=== PATIENT | male | born 1980 | race Two or more races ===

== ENCOUNTER 2020-09-04 16:11 | Emergency (ER) | payer MEDICAID, SELFPAY ==
[2020-09-04 16:26] VITALS: BP 131/69; PULSE 58; RESP 18; TEMP 36.4; O2SAT 99; BMI 29.5
--- NOTE | 2020-09-04 17:38 | ED.WOUNDLAC ---
HPI - Wound/Laceration General Chief Complaint: Skin/Abscess/Foreign Body Stated Complaint: Lac Time Seen by Provider: 09/04/20 17:37 Source: patient Mode of arrival: ambulatory Limitations: no limitations History of Present Illness HPI narrative: 40 y/o male presenting with right thumb laceration after he accidentally cut himself with a box toe flanger stitchdowns. He is able to move his thumb and bleeding is controlled on arrival. No other injury. Has never had stitches or a tetanus vaccine. Onset (ago): minute(s) (45) Location: other Extremity Location: right: hand (thumb ) Place: home Patient tetanus UTD: No Context: accidental Associated symptoms: pain Related Data Previous Rx's Medication Instructions Recorded cephalexin [Keflex] 500 mg PO QID #20 cap 09/04/20 Allergies Allergy/AdvReac Type Severity Reaction Status Date / Time No Known Allergies Allergy Verified 09/04/20 16:26 Review of Systems Review of Systems: Musculoskeletal: No joint pain, No Myalgias Skin: + Skin Lesions, No rash Neuro: No Weakness, No Numbness Heme/Lymph: No Bruising, No Lymphadenopathy PMFSH Past Medical History Attestation statement: The following information was validated with the patient. Medical History Healthy adult Social History Social History Advance Directives: No Advance Directives Information Provided: No Physical Exam Vital Signs: Vital Signs: Last Vital Signs Temp 97.6 F 09/04/20 16:26 Pulse 58 09/04/20 16:26 Resp 18 09/04/20 16:26 BP 131/69 09/04/20 16:26 Pulse Ox 99 09/04/20 16:26 Body Mass Index 29.5 Appearance: Alert. Oriented X3. No acute distress. HEENT: normal inspection Respiratory: No respiratory distress. Skin: Skin warm and dry. Normal skin color. Normal skin turgor. No rashes. Extremities: right thumb with 1.5 cm laceration at the tip without nail involvement, superficial with flap. NV intact. DIP flexion intact. Neuro: Oriented X 3. No motor deficit. No sensory deficit. Course Course Course Narrative: 40 y/o male with accidental right thumb lac from box toe flanger stitchdowns. see lac note. dressing applied and patient counseled. stable for d/c. Procedures Laceration Laceration 1: Site: hand Side (If applicable): right Size (cm): 2 Description: linear Depth: simple, single layer Local Anesthetic: lidocaine 2% Amount of anesthesia used (mL): 2 Pre-repair: irrigated extensively Skin layer closed with: nylon Size (cm): 4-0 Number of sutures: 4 Technique: simple, interrupted Technique: simple, interrupted Critical Care Time Critical Care Time Critical Care Time: No Discharge Plan Discharge Clinical Impression: Laceration Patient Disposition: Home, Self-Care Instructions: Finger Laceration (ED) Additional Instructions: Keep wound clean and dry. Do not get it wet for 24 hours. After that you can use gentle soap and water. Use topical bacitracin or triple antibiotic ointment to the area 2x per day. Take the prescribed antibiotics to help prevent infection. Monitor for signs of infection including worsening pain, redness, swelling or drainage of pus. If these develop, come back to the ER. Take Tylenol and/or Motrin as needed for pain. See your doctor or come back to the ER in 8-10 days for suture removal. Prescriptions: New cephalexin [Keflex] 500 mg capsule 500 mg PO QID Qty: 20 RF: 0 Stand Alone Forms: Work/School Release
[2020-09-04] MEDS: Lidocaine HCl 2 % MPF 5 ML VIAL INFILTRATI (18:25)
== END 2020-09-04 18:32 | disposition home or self-care (01) ==
PROVIDERS: Emergency Provider Emergency Medicine
DX: S61.011A Laceration without foreign body of right thumb without damage to nail, initial encounter (principal); S60.311A Abrasion of right thumb, initial encounter; M79.641 Pain in right hand; W26.0XXA Contact with knife, initial encounter; Y93.9 Activity, unspecified; Y92.009 Unspecified place in unspecified non-institutional (private) residence as the place of occurrence of the external cause; Y99.9 Unspecified external cause status; Z23 Encounter for immunization
CPT/HCPCS: 12001; 90471; 90715; 99283; 99284

== ENCOUNTER → 2020-10-29 13:15 | Outpatient (BNVA) | payer MEDICAID, SELFPAY | PROVIDERS: PCP Registered Nurse Community Health; Visit Provider Nurse Practitioner Family ==

== ENCOUNTER 2020-12-24 12:28 | Day surgery (SDC) | payer MEDICAID, SELFPAY ==
[2020-12-15 20:50] VITALS: BMI 26.6
[2020-12-17 09:39] LABS: Hemoglobin 12.8 g/dl (14.0-18.0); Mean Corpuscular Hemoglobin 26.8 pg (27.0-33.0); Mean Corpuscular Volume 83.9 fL (80-98); Mean Platelet Volume 9.5 fL (9.4-12.4); Platelet Count 261 X10*3/uL (160-400); Red Blood Count 4.77 X10*6/uL (4.60-5.80); Red Cell Distribution Width 13.5 % (11.0-16.0); White Blood Count 4.7 X10*3/uL (4.8-10.8)
[2020-12-17 10:14] LABS: Alanine Aminotransferase 23 U/L (0-40); Albumin Level 4.3 g/dL (3.5-5.0); Alkaline Phosphatase 63 U/L (39-117); Anion Gap 12 (12-20); Aspartate Amino Transferase 37 U/L (5-37); Bilirubin Total 0.7 mg/dL (0.0-1.0); Blood Urea Nitrogen 20 mg/dL (9-16); Carbon Dioxide 27 mmol/L (22-29); Chloride 106 mmol/L (96-108); Creatinine Clr Calc Pharmacy 100.3; Estimated Glomerular Filt Rate > 60; Glucose Random 92 mg/dL (60-115); Potassium 4.8 mmol/L (3.3-5.1); Sodium 140 mmol/L (135-145); Total Protein 7.6 g/dL (6.5-8.0)
--- NOTE | 2020-12-23 08:54 | P.CONAN_ITS ---
Documented by User: Bouchra Loo 12/23/20 08:55 HPI - Anesthesia Eval Consult details Narrative: 40yo M for Colonoscopy PMFSH Past Medical History Medical History Back pain Healthy adult Family History Family History Mother Colon cancer Father HIV (human immunodeficiency virus infection) Drug use Paternal Grandfather Prostate cancer Social History Social History Alcohol intake: former Smoking Status: Former smoker Smoked in Last 30 Days: No Smoking Quit Date: 2002 Use of substances other than those prescribed or required for medical reasons: No Have you been hit, kicked, punched, or otherwise hurt by someone within the past year? If so, by whom?: No Advance Directives: No Advance Directives Information Provided: No Advance Directives on File: No Recently lost weight without trying: No service: No Current occupational status: employed Current occupation: [employer] Gender identity: male Meds Allergies Allergy/AdvReac Type Severity Reaction Status Date / Time No Known Allergies Allergy Verified 12/24/20 12:44 Exam Exam Date and Time: December 23, 2020 0854 Height,Weight and Vital Signs: Height 5 ft 10 in Weight 84.368 kg Pertinent Lab Results Pertinent Lab Results: Laboratory Tests 12/17/20 12/17/20 08:55 08:55 WBC 4.7 L RBC 4.77 Hgb 12.8 L Hct 40.0 L MCV 83.9 MCH 26.8 L MCHC 32.0 RDW 13.5 Plt Count 261 MPV 9.5 Absolute Nucleated RBC 0.000 Nucleated RBC % (auto) 0.0 Sodium 140 Potassium 4.8 Chloride 106 Carbon Dioxide 27 Anion Gap 12 BUN 20 H Creatinine 1.02 Estim Creat Clear Calc 100.3 Estimated GFR > 60 Random Glucose 92 Calcium 9.0 Total Bilirubin 0.7 AST 37 ALT 23 Alkaline Phosphatase 63 Total Protein 7.6 Albumin 4.3 Assessment and Plan Assessment Anesthesia Assessment: Chart Reviewed Documented by User: Aditi Yeboah 12/24/20 13:39 PMFSH Past Medical History Medical History Back pain Healthy adult Family History Family History Mother Colon cancer Father HIV (human immunodeficiency virus infection) Drug use Paternal Grandfather Prostate cancer Social History Social History Alcohol intake: former Smoking Status: Former smoker Smoked in Last 30 Days: No Smoking Quit Date: 2002 Use of substances other than those prescribed or required for medical reasons: No Have you been hit, kicked, punched, or otherwise hurt by someone within the past year? If so, by whom?: No Advance Directives: No Advance Directives Information Provided: No Advance Directives on File: No Recently lost weight without trying: No service: No Current occupational status: employed Current occupation: [employer] Gender identity: male Meds Allergies Allergy/AdvReac Type Severity Reaction Status Date / Time No Known Allergies Allergy Verified 12/24/20 12:44 Exam Airway Mallampati Class: II TM Dist: >3cm Neck ROM: Full Assessment and Plan Assessment Anesthesia Assessment: Anesthesia Plan Discussed and Chart Reviewed Final Anesthetic Review NPO: Yes ASA Class: II Final Preanesthetic Review: No Changes in Pt Med Stat, Meds/Allgs Chart Reviewed, Consent Obtained/Reviewed and Anes Risks/Benef Reviewed Patient Risk: Low Procedure Risk: Low Assessment/Block/Sedation in SS: Assess/Block/Sedation-SS Anesthetic Plan Anesthetic Plan: MAC: Disposition: Standard PACU
[2020-12-24 12:44] VITALS: BP 118/41; PULSE 58; RESP 18; TEMP 36.8; O2SAT 99
--- NOTE | 2020-12-24 13:05 | P.OP_ITS ---
Operative Note Operative Note Date of Service: 12/24/20 Narrative: Pre-op diagnosis: Colon cancer screening, positive family history of colon cancer (mom in her 40's) Post-op diagnosis: other (diverticulosis, hemorrhoids) Procedure: COLONOSCOPY TILL CECUM WITH BIOPSIES Consent: Indications for the procedure and potential complications of bleeding, perforation, reaction to medications and missed diagnosis were discussed with the patient and informed consent was obtained. Instrument: Olympus PCF H 190 L variable stiffness pediatric colonoscope Monitoring: Vital signs and clinical assessment, intermittent blood pressure monitoring, continuous EKG monitoring, Pulse oximetry and Carbon Dioxide monitoring were done throughout the procedure. Colon withdrawl time was 25 minutes. Procedure: The patient was placed in the left lateral decubitis position and pre-procedure medications were administered. After a digital rectal examination of the ano-rectum, the video colonoscope was inserted into the rectum and advanced through the colon to the cecum. The colonoscope was slowly withdrawn in a retrograde panoramic fashion and the colon mucosa was carefully examined including a retroflexed view of the rectum. Findings and interventions are described below. Procedure Difficulty: Without difficulty Findings: Terminal Ileum: Not evaluated Cecum: Normal Ascending Colon: Friable appearing mucosa in the right colon - random biopsies were obtained. Transverse Colon: Normal Descending Colon: Moderate diverticulosis Sigmoid Colon: Moderate diverticulosis Rectum: Normal Ano-rectum: Moderate internal hemorrhoids Colon preparation: Fair despite copious irrigation due to adherent stool in the right colon, 75 to 80% of the mucosa was visualized and no large lesions were seen. Impression and Post Procedure Diagnosis: Colonoscopy Findings: No polyps were detected. Friable appearing mucosa in the right colon - random biopsies were obtained. Moderate diverticulosis seen in the left colon Moderate hemorrhoids on retroflexed exam. Plan: Await pathology results Patient has an appointment on 12/31/20 in the [facility] with An Myles FNP- [facility]. Repeat Colonoscopy interval based on path results - in 3 years due to positive family history and fair prep Above findings were reviewed with the patient and diverticulosis handout was given in the discharge area Surgeon: Yanira Higgins MD Anesthesia: MAC (Ashia Motneiro) Physician Gynecologist: Amari Covington Estimated blood loss (mL): 0 Pathology: other (A. Right colon) Condition: stable Disposition: PACU
[2020-12-24] MEDS: Lactated Ringers 1,000 ML 100 ML IVCONT (13:06)
--- NOTE | 2020-12-24 13:06 | MHC.SHP ---
Pre-Procedural Eval Section B Chief Complaint: screening, labs Details of Present Illness: 40 year old male here today for pre colonoscopy screening. Patient was sent to us by his PCP. This is his first colonoscopy screening. Patient denies any gastrointestinal symptoms in the past or at present. Denies any personal history of gastrointestinal disease, colon polyps, or cancer. Patient reports that his mother was diagnosed with stage IV cancer in her early 40s. Relevant Family History (Specify if Yes): Yes Relevant Social History: Tobacco Use (past smoker) Present Medications: see Short Stay Collaborative assessment Medical History: No relevant PMH History of Previous Operations: No relevant previous surgery Allergies: Allergies Allergy/AdvReac Type Severity Reaction Status Date / Time No Known Allergies Allergy Verified 12/24/20 12:44 Review of Systems Sugical H&P ROS: Negative: Constitution, Cardiovascular, Respiratory and Gastrointestinal Exam Surgical H&P Exam: Normal: Heart, Normal: Lungs, Normal: Extremities and Normal: Abdomen Plan Diagnosis/Plan: Unchanged I have reviewed the history and physical and performed a pertinent physical examination on my patient. No changes have occurred unless specified.
[2020-12-24 13:08] VITALS: BMI 26.2
[2020-12-24 14:15] VITALS: BP 90/43; PULSE 48; RESP 12; TEMP 36; O2SAT 97
[2020-12-24 14:30] VITALS: BP 120/64; PULSE 58; RESP 16; TEMP 36.1; O2SAT 99
== END 2020-12-24 15:00 | disposition home or self-care (01) ==
PROVIDERS: Absent Provider Nurse Practitioner Family; Visit Provider Internal Medicine Gastroenterology
PROC: 0DJD8ZZ Inspection of Lower Intestinal Tract, Via Natural or Artificial Opening Endoscopic (ICD-10-PCS; CPT 45378; principal; 2020-12-24 13:30)
DX: Z12.11 Encounter for screening for malignant neoplasm of colon (principal); Z80.0 Family history of malignant neoplasm of digestive organs; K57.30 Diverticulosis of large intestine without perforation or abscess without bleeding; K64.8 Other hemorrhoids; Z87.891 Personal history of nicotine dependence
CPT/HCPCS: 45380; 36415; 80053; 85027; 88305

== ENCOUNTER → 2021-01-07 13:23 | Outpatient (BNVA) | payer MEDICAID, SELFPAY | PROVIDERS: PCP Registered Nurse Community Health; Visit Provider Nurse Practitioner Family ==

== ENCOUNTER → 2021-02-11 13:22 | Outpatient (BNVA) | payer MEDICAID, SELFPAY | PROVIDERS: PCP Registered Nurse Community Health; Visit Provider Nurse Practitioner Family ==

== ENCOUNTER 2024-03-14 16:35 | Outpatient (AMB) | payer MEDICAID, SELFPAY ==
--- NOTE | 2024-03-14 16:28 | A.OFFVIS_ITS ---
Vital Signs 03/14/24 16:37 Height 5 ft 9 in Weight 194 lb 7.163 oz BMI 28.7 BP 150/78 H Blood Pressure Location Lt brachial Position Sitting Pulse 64 Pulse Source Pulse Oximeter Pulse Oximetry (%) 97 Oxygen Delivery Method Room Air Intake Visit Reasons: discuss colonoscopy Intake Note: Cr presents in office today for a routine colo scrn. CC; Pt reports that their condition has remained stable. Pt denies any significant sx or concerns. Pt states that their last colo sp was approximately 3-4 years ago. Final Block Press Operator Required: No Allergies No Known Allergies Allergy (Verified 03/14/24 16:37) HPI HPI discuss colonoscopy: Details: LAST VISIT: Diverticulosis Plan As mentioned above in HPI patient tolerating Citrucel well. Denies any GI symptoms. Moving his bowels every day. Denies any abdominal discomfort, bloating, distention. He is agreeable to stay on it and take it every day. Refills sent to pharmacy. High-fiber diet discussed again with patient. He is verbalizing understanding and is agreeable to plan of care. He was given the opportunity to ask questions all questions answered. I will see him in 6 months sooner if he will experience any concerning GI symptoms. ? Thank you for allowing me to participate in his care Medications Refilled: methylcellulose (laxative) (Citrucel) 500 mg PO DAILY 30 tabs 4RF TODAY'S VISIT Patient is here today for follow-up and to discuss going for colonoscopy again. Last colonoscopy was in December of 2020. There was no polyps, moderate diverticulosis found, however due to patient's family history of CRC patient was recommended to return for colorectal screening in 3 years. Patient's mom of colorectal cancer in her early 40s. Patient denies any melena, hematochezia unintentional weight loss or ribbon like stools. Patient reports that he has been moving his bowels well. Denies any cardiac or respiratory symptoms. No history of sleep apnea. No issues with anesthesia in the past. Not on any anticoagulation medication. [facility] Medical History Diverticulosis Back pain Healthy adult Surgical History H/O colonoscopy Family History Mother Colon cancer Father HIV (human immunodeficiency virus infection) Drug use Paternal Grandfather Prostate cancer Social History Household Members: Spouse and Children Alcohol intake: current Alcohol intake frequency: holidays/special occasions only service: No Current occupational status: employed Current occupation: [email or web address] Gender identity: Male Review of Systems Const Denies weight gain and Denies weight loss ENT Reports no additional complaints, Denies dysphagia and Denies odynophagia Card Reports no additional complaints Resp Reports no additional complaints GI Denies abdominal pain, Denies belching, Denies melena, Denies bloating, Denies change in bowel habits, Denies dysphagia, Denies excessive flatus, Denies dyspepsia, Denies heartburn, Denies diarrhea, Denies loose stools, Denies nausea, Denies odynophagia and Denies vomiting Reports no additional complaints Musc Reports no additional complaints Neuro Reports no additional complaints Psych Reports no additional complaints Endo Reports no additional complaints Physical Exam Vital Signs: Last Vital Signs Pulse 64 03/14/24 16:37 BP 150/78 H 03/14/24 16:37 Pulse Ox 97 03/14/24 16:37 Oxygen Delivery Method Room Air 03/14/24 16:37 BMI result Body Mass Index 28.7 Const General: healthy appearing, no acute distress and well developed Nutritional Appearance: well nourished Orientation/consciousness: patient oriented x3 Resp Effort & Inspection: normal respiratory effort, able to speak in complete sentences, no tracheal deviation and symmetric chest movement Auscultation: clear to auscultation bilaterally Cardio Rate: regular rate GI Inspection: Yes normal to inspection and No distended Palpation (GI): Soft to palpation, not firm, nontender and No hepatosplenomegaly present Auscultation: normal bowel sounds General: Yes no CVA tenderness Back/Spine/Pelvis Back: no CVA tenderness Skin General skin exam: elasticity normal, turgor normal and dry skin Neuro General: patient oriented x3 Psych Appearance: grossly normal Mental Status: mental status grossly normal Assessment & Plan Assessment & Plan (1) Diverticulosis: Code(s): K57.90 - Diverticulosis of intestine, part unspecified, without perforation or abscess without bleeding Category: Medical (2) Family history of colorectal cancer: Code(s): Z80.0 - Family history of malignant neoplasm of digestive organs (3) Screen for colon cancer: Code(s): Z12.11 - Encounter for screening for malignant neoplasm of colon Plan Will book patient for colonoscopy. What to expect before during and after procedure discussed with patient. Discussed with him the importance of good bowel prep and clear liquid diet day before procedure. Patient was encouraged to take Dulcolax few days before procedure in the evening to ensure good bowel prep. No issues with anesthesia in the past. No history of sleep apnea. Denies any cardiac or respiratory symptoms. Not on any anticoagulation medication. I will see him after the procedure, sooner on as needed basis. He is agreeable to this plan and verbalizes understanding of instructions. She was given the opportunity to ask questions and all questions answered. Thank you for allowing me to participate in his care Medications: New bisacodyl (Dulcolax (bisacodyl)) Start taking 2 tablet every night 7 days before the procedure and 1 day before procedure take 4 tablets at noon time followed by MiraLax prep 10 mg (2 x 5 mg) PO BEDTIME 16 tabs 0RF Z12.11 - Encounter for screening for malignant neoplasm of colon polyethylene glycol 3350 (Miralax) As directed by gastroenterology department at [facility] 238 grams PO ONCE 238 grams 0RF Z12.11 - Encounter for screening for malignant neoplasm of colon Coding Level of Care Code Est Pt Level 3 (44873) Diagnoses Diverticulosis K57.90 Family history of colorectal cancer Z80.0 Screen for colon cancer Z12.11 Time Spent (min) 30 Comment 20 minutes spent with patient and additional 10 minutes spent reviewing his records
[2024-03-14 16:37] VITALS: BP 150/78; PULSE 64; O2SAT 97; BMI 28.7
== END 2024-03-14 16:58 | disposition home or self-care (01) ==
PROVIDERS: Visit Provider Nurse Practitioner Family
DX: K57.90 Diverticulosis of intestine, part unspecified, without perforation or abscess without bleeding (principal); Z80.0 Family history of malignant neoplasm of digestive organs; Z12.11 Encounter for screening for malignant neoplasm of colon
CPT/HCPCS: 99213

== ENCOUNTER → 2024-03-14 16:35 | Outpatient (BNVA) | payer MEDICAID, SELFPAY | PROVIDERS: Visit Provider Nurse Practitioner Family | DX: Z12.11 Encounter for screening for malignant neoplasm of colon (principal); K57.20 Diverticulitis of large intestine with perforation and abscess without bleeding; Z80.0 Family history of malignant neoplasm of digestive organs | CPT/HCPCS: 99212 ==

== ENCOUNTER 2025-01-16 07:24 | Day surgery (SDC) | payer MEDICAID, SELFPAY ==
[2025-01-14 13:35] VITALS: BMI 28.7
--- NOTE | 2025-01-15 09:01 | HO.ANESPROP2 ---
Documented by User: Bouchra Loo NP 01/15/25 09:01 HPI - Anesthesia Eval Consult details Narrative: 44yo M for Colonoscopy PMFSH Active Problems Active Problems: All Active Problems Diverticulosis (Acute) Past Medical History Medical History Diverticulosis Back pain Healthy adult Family History Family History Mother Colon cancer Father HIV (human immunodeficiency virus infection) Drug use Paternal Grandfather Prostate cancer Surgical History Surgical History H/O colonoscopy Social History Social History Household Members: Spouse and Children Alcohol intake: current Alcohol intake frequency: holidays/special occasions only Patient Tobacco Use Status: Former Tobacco user Use of substances other than those prescribed or required for medical reasons: No Are you DNR?: No Advance Directives: No Advance Directives Information Provided: Yes Poor oral hygiene: No service: No Current occupational status: employed Current occupation: [employer] Gender identity: Male Meds Allergies Allergy/AdvReac Type Severity Reaction Status Date / Time No Known Allergies Allergy Verified 03/14/24 16:37 Exam Height,Weight and Vital Signs: Height 5 ft 9 in Weight 88.195 kg Assessment and Plan Assessment Anesthesia Assessment: Chart Reviewed Documented by User: Lizet Carson MD 01/16/25 08:22 PMF Past Medical History Medical History Diverticulosis Back pain Healthy adult Family History Family History Mother Colon cancer Father HIV (human immunodeficiency virus infection) Drug use Paternal Grandfather Prostate cancer Family history of problems with anesthesia: No Surgical History Surgical History H/O colonoscopy History of Problems with Anesthesia: No Social History Social History Household Members: Spouse and Children Alcohol intake: current Alcohol intake frequency: holidays/special occasions only Patient Tobacco Use Status: Former Tobacco user Use of substances other than those prescribed or required for medical reasons: No Are you DNR?: No Advance Directives: No Advance Directives Information Provided: Yes Poor oral hygiene: No service: No Current occupational status: employed Current occupation: [employer] Gender identity: Male Meds Allergies Allergy/AdvReac Type Severity Reaction Status Date / Time No Known Allergies Allergy Verified 03/14/24 16:37 Exam Airway Mallampati Class: II TM Dist: >3cm Neck ROM: Full Heart: rrr Lungs: cta Assessment and Plan Assessment Anesthesia Assessment: Anesthesia Plan Discussed Final Anesthetic Review Family History of Problems with Anesthesia: No History of Problems with Anesthesia: No NPO: Yes ASA Class: II Final Preanesthetic Review: No Changes in Pt Med Stat, Meds/Allgs Chart Reviewed and Consent Obtained/Reviewed Patient Risk: Low Procedure Risk: Low Anesthetic Plan Anesthetic Plan: MAC: Disposition: Standard PACU
[2025-01-16 07:35] VITALS: BMI 28.2
[2025-01-16 07:40] VITALS: BP 124/48; PULSE 60; RESP 16; TEMP 37.2; O2SAT 95
[2025-01-16] MEDS: Lactated Ringers 1,000 ML 100 ML IVCONT (07:55)
--- NOTE | 2025-01-16 08:14 | MHC.SHP ---
Pre-Procedural Eval Section A - 24 Hr Update-Section A only Date of Service: 01/16/25 The patient is an INPATIENT: No The patient has been examined within 24 hours of the surgical procedure. The History & Physical has been completed within 30 days and I have reviewed it.: No Section B - Complete if H&P > 30 days Chief Complaint: Colon cancer screening Relevant Family History (Specify if Yes): Yes Relevant Social History: Tobacco Use (former smoker) Present Medications: see Short Stay Collaborative assessment Medical History: Significant History (Diverticulosis Back pain) History of Previous Operations: Relevant previous surgery/procedure and date(s) (History of colonoscopy) Allergies: Allergies Allergy/AdvReac Type Severity Reaction Status Date / Time No Known Allergies Allergy Verified 03/14/24 16:37 Review of Systems Sugical H&P ROS: Negative: Constitution, Cardiovascular, Respiratory and Gastrointestinal Exam Surgical H&P Exam: Normal: Heart, Normal: Lungs, Normal: Extremities and Normal: Abdomen Plan Diagnosis/Plan: Unchanged I have reviewed the history and physical and performed a pertinent physical examination on my patient. No changes have occurred unless specified. Time Spent With Patient Time: Total time managing care of this patient today ____ minutes.
--- NOTE | 2025-01-16 09:12 | HO.OPN-COLON ---
Colonoscopy Operative Note Operative Note Date of Service: 01/16/25 Narrative: COLONOSCOPY TILL CECUM Pre-op diagnosis: Colon cancer screening, family hx of colon cancer. Post-op diagnosis:? Diverticulosis, hemorrhoids Endoscopist:? Yanira Higgisn MD Anesthesia:?MAC Consent: Indications for the procedure and potential complications of bleeding, perforation, reaction to medications and missed diagnosis were discussed with the patient and informed consent was obtained. Instrument: Olympus CF H 190 L variable stiffness adult colonoscope Monitoring: Vital signs and clinical assessment, intermittent blood pressure monitoring, continuous EKG monitoring, Pulse oximetry and Carbon Dioxide monitoring were done throughout the procedure. Please see anesthesia flowsheet. Colon withdrawl time was 13 minutes. Procedure: The patient was placed in the left lateral decubitis position and pre-procedure medications were administered. After a digital rectal examination of the ano-rectum, the video colonoscope was inserted into the rectum and advanced through the colon to the cecum. The colonoscope was slowly withdrawn in a retrograde panoramic fashion and the colon mucosa was carefully examined including a retroflexed view of the rectum. Findings and interventions are described below. Procedure Difficulty: Colon was long and tortuous and there was some loop formation Findings: Terminal Ileum: Not evaluated Cecum: Normal Ascending Colon: Normal Transverse Colon: Normal Descending Colon: Normal Sigmoid Colon: Moderate diverticulosis Rectum: Normal Ano-rectum: Moderate internal hemorrhoids Colon preparation: Excellent after some irrigation. [place] Bowel Preparation Scale Right colon; 3 Transverse colon: 3 Left colon; 3 (0 = Unprepared colon segment with mucosa not seen due to solid stool that cannot be cleared. 1 = Portion of mucosa of the colon segment seen, but other areas of the colon segment not well seen due to staining, residual stool and/or opaque liquid. 2 = Minor amount of residual staining, small fragments of stool and/or opaque liquid, but mucosa of colon segment seen well. 3 = Entire mucosa of colon segment seen well with no residual staining, small fragments of stool or opaque liquid) Impression and Post Procedure Diagnosis: Colonoscopy Findings: No polyps were detected Moderate diverticulosis seen in the sigmoid colon Small hemorrhoids on retroflexed exam. Plan: Pt has a FU appointment on 01/30/25 with Lupe Myles NP Repeat Colonoscopy in 5 years due to positive family history. Above findings were reviewed with the patient and relevant handouts were given and the discharge area.
[2025-01-16 09:17] VITALS: BP 91/48; PULSE 55; RESP 15; TEMP 36.9; O2SAT 96
[2025-01-16 09:32] VITALS: BP 93/43; PULSE 56; RESP 15; O2SAT 96
[2025-01-16 09:47] VITALS: BP 102/51; PULSE 56; RESP 15; TEMP 36.8; O2SAT 96
== END 2025-01-16 10:17 | disposition home or self-care (01) ==
PROVIDERS: Visit Provider Internal Medicine Gastroenterology
PROC: 0DJD8ZZ Inspection of Lower Intestinal Tract, Via Natural or Artificial Opening Endoscopic (ICD-10-PCS; CPT 45378; principal; 2025-01-16 08:30)
DX: Z12.11 Encounter for screening for malignant neoplasm of colon (principal); K57.30 Diverticulosis of large intestine without perforation or abscess without bleeding; K64.8 Other hemorrhoids; K56.2 Volvulus; Z80.0 Family history of malignant neoplasm of digestive organs; Z87.891 Personal history of nicotine dependence; Z79.899 Other long term (current) drug therapy
CPT/HCPCS: 45378; J2003; J2704

== ENCOUNTER → 2025-01-16 07:24 | Outpatient (BNV) | payer MEDICAID, SELFPAY | PROVIDERS: Visit Provider Internal Medicine Gastroenterology | DX: Z12.11 Encounter for screening for malignant neoplasm of colon (principal); Z80.0 Family history of malignant neoplasm of digestive organs; K57.30 Diverticulosis of large intestine without perforation or abscess without bleeding; K64.8 Other hemorrhoids | CPT/HCPCS: 45378 ==

== ENCOUNTER 2025-02-05 09:38 | Emergency (ER) | payer OTHER, MEDICAID, SELFPAY ==
--- NOTE | ~2025-02-05 | XR_ITS ---
EXAMINATION: XR ANKLE, RIGHT CLINICAL INFORMATION: right ankle injury COMPARISON: None available. TECHNIQUE: AP, lateral, and mortise views of the right ankle. FINDINGS: No fracture, dislocation, or suspicious bone lesion. Normal bone mineralization. Normal alignment. Mortise is preserved. The talar dome is normal. The subtalar joints and calcaneus appear normal. Joint spaces are preserved. No significant arthropathy. No ankle joint effusion. Soft tissues appear normal. XR/XR ankle RT min 3V IMPRESSION: Normal right ankle. Electronically signed by: Mario Cadena MD 02/05/2025 11:00 AM EDT
[2025-02-05 09:39] VITALS: BP 137/71; PULSE 67; RESP 16; TEMP 36; O2SAT 99; BMI 27.3
--- NOTE | 2025-02-05 11:25 | ED.GENADULT ---
HPI - General Adult General Chief complaint: Extremity Injury, Lower Stated complaint: ankle inj @ work Time Seen by Provider: 02/05/25 11:25 Source: patient Mode of arrival: ambulatory Limitations: no limitations History of Present Illness ED Provider: Wesley Kinney HPI narrative: 44 yold male with pmh of diverticulosis presents to the ED for Right ankle pain. patient states a table at work fell on his right ankle. patient denies table falling on foot. patient states table did not fall unto his feet. patient denies any other trauma or complaints. Related Data Previous Rx's ?Medication ?Instructions ?Recorded methylcellulose (laxative) 500 mg 500 mg PO DAILY #30 tabs 11/08/21 tablet (Citrucel) naproxen 500 mg tablet 500 mg PO BID PRN pain #14 tabs 02/05/25 Allergies Allergy/AdvReac Type Severity Reaction Status Date / Time No Known Allergies Allergy Verified 02/05/25 09:41 Review of Systems Review of Systems: Right ankle pain Yes all other systems are reviewed and are negative PMFSH Past Medical History Medical History Diverticulosis Back pain Healthy adult Surgical History H/O colonoscopy Family History Family History Mother Colon cancer Father HIV (human immunodeficiency virus infection) Drug use Paternal Grandfather Prostate cancer Social History Social History Household Members: Spouse and Children Alcohol intake: current Alcohol intake frequency: holidays/special occasions only Patient Tobacco Use Status: Former Tobacco user Advance Directives: No Advance Directives Information Provided: Yes Do you have a plan to hurt others: No Plan service: No Current occupational status: employed Current occupation: [employer] Gender identity: Male Physical Exam ED Vital Signs: Vital Signs - 24 hr 02/05/25 09:39 Temperature 96.8 F Pulse Rate 67 Respiratory Rate 16 Blood Pressure 137/71 Pulse Oximetry 99 Oxygen Delivery Method Room Air BMI result Body Mass Index 27.3 Const General: cooperative, healthy appearing, comfortable, no acute distress, well developed, alert, awake and Physically active Orientation/consciousness: patient oriented x3 [facility] Head: Yes normal to inspection, Yes No palpable skull fracture present, Yes normocephalic and Yes atraumatic Eyes General: appearance normal, both eyes and all related structures Neck Neck: Yes normal visual inspection, Yes full ROM, Yes no lymphadenopathy, Yes no meningeal signs, Yes trachea midline, Yes supple, No anterior neck swelling and No tender Chest Chest palpation & inspection: normal inspection of the chest and normal palpation of entire chest wall Resp Effort & Inspection: normal respiratory effort and able to speak in complete sentences Auscultation: clear to auscultation bilaterally Cardio Jugular venous distension: no JVD Heart sounds: S1 normal heart sound present and S2 normal heart sound present GI Inspection: Yes normal to inspection Palpation (GI): Soft to palpation, not firm, nontender, no guarding and not rigid General: Yes no CVA tenderness Back/Spine/Pelvis Back: no CVA tenderness and No back tenderness Skin General skin exam: no rashes or lesions noted, elasticity normal and turgor normal Neuro General: patient oriented x3, gait normal, tone normal, moves all extremities, Normal light touch and pain sensation, no meningeal signs, no focal motor deficits and CN's II-XI intact bilaterally Extrem General: Yes normal to inspection, Yes full ROM and Yes capillary refill normal Ankle/foot/toe images: 1. positive for abrasion and tenderness on palpation. negative for active bleeding, deformity, achilles injury, erythema, pus discharge, crepitus, or hotness/coldness. REst of extremity is normal. Motor, neuro, and vascular exam is intact. achilles intact. negative smith test Psych Appearance: grossly normal, well kempt and not disheveled Medical Decision Making Medical Decision Making MDM Narrative: 44 yold male with past history of diverticulosis presents to ED for right ankle pain. Patient states table fell onto his right ankle at his job. Patient denies stable falling on his feet. Patient denies any swelling, bluish discoloration, redness, chest pain, shortness of breath. Patient denies any other trauma any other complaints. Physical exam positive for posterior right ankle abrasion. Achilles intact. Negative for any swelling redness ecchymosis or deformity. Not suspecting DVT, compartment syndrome, leg fracture, Achilles tendon rupture, foot fracture, cellulitis, necrotizing fasciitis, arterial occlusion. Patient explained worrisome signs and informed to return to the ED immediately. Patient is placed given Hira wrap. Differential Diagnosis Differential Diagnoses: The differential diagnosis associated with the presentation includes (Fracture dislocation sprain) Admission/Observation Consideration of admission/observation: Escalation of care including admission/observation considered Independent Interpretation I performed an independent interpretation of an: Plain X-Ray Radiology Impression Discussion of test interpretation with radiology: I have reviewed the radiologist's reading. Independent Historian Clinical information obtained from an independent historian. History obtained from or confirmed by: Other (patient) Prescription Management I considered prescription management with: Pain Medication Discharge Plan Discharge Clinical Impression: Ankle sprain and strain Patient Disposition: Home, Self-Care Instructions: Ankle Sprain (ED), How to Use an Elastic Bandage (ED), P.R.I.C.E. Treatment (ED) Additional Instructions: X-ray came back negative for any fractures. Recommend follow up with primary care provider. Return to the ED immediately for any severe pain, redness, swelling, bluish black discoloration, chest pain, shortness of breath, pus discharge, foul odor, fever, chills, or any other concerning symptoms. EXAMINATION: XR ANKLE, RIGHT CLINICAL INFORMATION: right ankle injury COMPARISON: None available. TECHNIQUE: AP, lateral, and mortise views of the right ankle. FINDINGS: No fracture, dislocation, or suspicious bone lesion. Normal bone mineralization. Normal alignment. Mortise is preserved. The talar dome is normal. The subtalar joints and calcaneus appear normal. Joint spaces are preserved. No significant arthropathy. No ankle joint effusion. Soft tissues appear normal. XR/XR ankle RT min 3V IMPRESSION: Normal right ankle. Electronically signed by: Mario Cadena MD 02/05/2025 11:00 AM EDT Prescriptions: New naproxen 500 mg tablet 500 mg PO BID PRN (Reason: pain) Qty: 14 0RF No Action Citrucel 500 mg tablet 500 mg PO DAILY Qty: 30 2RF Referrals: [facility] [Outside] (Right ankle sprain due to injury at work) Stand Alone Forms: Work/School Release Discharge Date/Time: 02/05/25 11:48 Print Language: Azeri
== END 2025-02-05 11:48 | disposition home or self-care (01) ==
PROVIDERS: Emergency Provider Emergency Medicine
DX: S93.401A Sprain of unspecified ligament of right ankle, initial encounter (principal); Y29.XXXA Contact with blunt object, undetermined intent, initial encounter; Y93.9 Activity, unspecified; Y92.9 Unspecified place or not applicable; Y99.0 Civilian activity done for income or pay; Z87.891 Personal history of nicotine dependence
CPT/HCPCS: 73610; 99281; 99283

== ENCOUNTER → 2025-02-05 10:40 | Outpatient (BNV) | payer OTHER, MEDICAID, SELFPAY | PROVIDERS: Emergency Provider Emergency Medicine; Visit Provider Radiology Diagnostic Radiology | DX: M25.571 Pain in right ankle and joints of right foot (principal) | CPT/HCPCS: 73610 ==